=== PATIENT | female | born 1950 | race Caucasian/White ===

== ENCOUNTER 2023-10-28 09:42 | Outpatient (CLI) | payer BC, MEDICARE ==
[2023-10-28 10:17] LABS: BASOPHILS % (AUTO) 0.5 % (0-1); EOSINOPHILS # (AUTO) 0.3 X10'3 (0-0.9); EOSINOPHILS % (AUTO) 5.5 % (0-6); HEMATOCRIT 39.9 % (35.0-45.0); HEMOGLOBIN 13.3 g/dl (12.0-16.0); LYMPHOCYTES # (AUTO) 1.2 X10'3 (1.1-4.8); LYMPHOCYTES % (AUTO) 21.8 % (21-51); MEAN CORPUSCULAR HEMOGLOBIN 29.6 PG (27.0-31.0); MEAN CORPUSCULAR HGB CONC 33.3 g/dL (33.0-36.5); MEAN CORPUSCULAR VOLUME 88.8 FL (78-98); MEAN PLATELET VOLUME 8.2 FL (7.4-10.4); MONOCYTES # (AUTO) 0.6 X10'3 (0-0.9); NEUTROPHILS # (AUTO) 3.3 X10'3 (1.8-7.7); NEUTROPHILS % (AUTO) 61.2 % (42-75); PLATELET COUNT 200 X10'3 (140-440); RED BLOOD COUNT 4.49 X10'6 (4.20-5.60); RED CELL DISTRIBUTION WIDTH 14.6 % (11.5-14.5); WHITE BLOOD COUNT 5.4 X10'3 (4.5-11.0)
[2023-10-28 10:31] LABS: APTT 29 SECONDS (22-32); PROTHROMBIN TIME 10.9 SECONDS (9.0-12.0)
[2023-10-28 10:45] LABS: ANION GAP 7 (8-16); BLOOD UREA NITROGEN 26 MG/DL (7-18); BUN/CREATININE RATIO 21.7 (10.0-20.0); CHLORIDE 109 MMOL/L (99-107); GLUCOSE 97 MG/DL (70-104); POTASSIUM 3.9 MMOL/L (3.5-5.1); SODIUM 144 MMOL/L (135-145); TOTAL CARBON DIOXIDE 27.9 MMOL/L (24-32); eGFR 44 ML/MIN
[2023-10-28 10:46] LABS: ALANINE AMINOTRANSFERASE 24 U/L (12-78); ALBUMIN 3.5 G/DL (3.4-5.0); ALBUMIN/GLOBULIN RATIO 0.9 (1.1-1.5); ALKALINE PHOSPHATASE 93 IU/L (46-116); ASPARTATE AMINO TRANSFERASE 18 U/L (10-37); BILIRUBIN,TOTAL 0.5 MG/DL (0.1-1.0); TOTAL PROTEIN 7.3 G/DL (6.4-8.2)
[2023-10-28 10:48] LABS: PRO BRAIN NATRIURETIC PEPTIDE 249 PG/ML (0-125)
[2023-10-28] MEDS ORDERED: IODIXANOL 320 MG/ML INFUS..BTL 100ML IV ONE (11:18)
== END 2023-10-28 23:59 | disposition home or self-care (01) ==
LOC: RAD 09:42
PROVIDERS: ATTEND Internal Medicine Cardiovascular Disease
DX: K80.20 Calculus of gallbladder without cholecystitis without obstruction (principal); I35.0 Nonrheumatic aortic (valve) stenosis; R06.02 Shortness of breath; R91.8 Other nonspecific abnormal finding of lung field; I65.23 Occlusion and stenosis of bilateral carotid arteries; I70.0 Atherosclerosis of aorta; J98.4 Other disorders of lung; K57.30 Diverticulosis of large intestine without perforation or abscess without bleeding; N32.89 Other specified disorders of bladder; M47.819 Spondylosis without myelopathy or radiculopathy, site unspecified; M43.16 Spondylolisthesis, lumbar region; Z90.710 Acquired absence of both cervix and uterus
CPT/HCPCS: 36415; 71046; 71275; 74174; 75572; 80053; 83880; 85025; 85610; 85730; 93880; 94010; 94727; 94729; J3490; Q9967

== ENCOUNTER 2023-12-03 05:57 | Inpatient (IN) | payer BC, MEDICARE ==
[2023-11-26 11:10] LABS: BILIRUBIN,URINE NEGATIVE (Neg); CLARITY,URINE SLIGHTLY CLOUDY (Clear); COLOR,URINE YELLOW (Yellow); GLUCOSE, URINE NEGATIVE (Neg); KETONES,URINE NEGATIVE (Neg); LEUKOCYTE ESTERASE ,URINE SMALL (Neg); NITRITES, URINE NEGATIVE (Neg); OCCULT BLOOD,URINE NEGATIVE (Neg); PROTEIN,URINE NEGATIVE (Neg); UROBILINOGEN,URINE 0.2 E.U/dL (0.2-1.0)
[2023-11-26 11:14] LABS: UA COLLECTION TYPE CLN CATCH MIDSTREAM
[2023-11-26 11:19] LABS: BASOPHILS % (AUTO) 0.5 % (0-1); EOSINOPHILS # (AUTO) 0.4 X10'3 (0-0.9); EOSINOPHILS % (AUTO) 7.1 % (0-6); LYMPHOCYTES # (AUTO) 1.3 X10'3 (1.1-4.8); LYMPHOCYTES % (AUTO) 20.8 % (21-51); MEAN CORPUSCULAR HGB CONC 32.8 g/dL (33.0-36.5); MEAN CORPUSCULAR VOLUME 88.4 FL (78-98); MEAN PLATELET VOLUME 8.1 FL (7.4-10.4); MONOCYTES # (AUTO) 0.8 X10'3 (0-0.9); MONOCYTES % (AUTO) 11.9 % (2-12); NEUTROPHILS # (AUTO) 3.8 X10'3 (1.8-7.7); NEUTROPHILS % (AUTO) 59.7 % (42-75); PRE OP HEMOGLOBIN 13.5 g/dL (12.0-16.0); PRE OP PLATELET COUNT 216 X10'3 (140-440); PRE OP WHITE BLOOD COUNT 6.3 10'3 (4.8-10.8); RED BLOOD COUNT 4.63 X10'6 (4.20-5.60)
[2023-11-26 11:20] LABS: SQUAMOUS EPITHELIAL CELL,UR MANY /LPF (FEW)
[2023-11-26 11:22] LABS: RBC,URINE NONE SEEN /HPF (0-2)
[2023-11-26 11:23] LABS: BACTERIA,URINE FEW /HPF (Neg)
[2023-11-26 11:37] LABS: PRE OP PROTIME 10.9 SECONDS (9.0-12.0)
[2023-11-26 11:48] LABS: ALBUMIN 3.3 G/DL (3.4-5.0); ALBUMIN/GLOBULIN RATIO 0.7 (1.1-1.5); ALKALINE PHOSPHATASE 93 IU/L (46-116); BLOOD UREA NITROGEN 25 MG/DL (7-18); BUN/CREATININE RATIO 19.4 (10.0-20.0); CALCIUM 9.1 MG/DL (8.5-10.1); CHLORIDE 107 MMOL/L (99-107); CREATININE 1.29 MG/DL (0.40-0.90); PRE OP ALT 22 U/L (30-65); PRE OP ANION GAP 11 (8-16); PRE OP AST 16 U/L (10-37); PRE OP BILIRUB, TOTAL 0.5 MG/DL (0.0-1.0); PRE OP GLUCOSE 91 MG/DL (70-104); PRE OP POTASSIUM 3.6 MMOL/L (3.4-5.1); PRE OP SODIUM 144 MMOL/L (135-145); PRO BRAIN NATRIURETIC PEPTIDE 223 PG/ML (0-125); TOTAL CARBON DIOXIDE 26.5 MMOL/L (24-32); TOTAL PROTEIN 7.8 G/DL (6.4-8.2); eGFR 41 ML/MIN
[2023-11-26 12:26] LABS: THYROID STIMULATING HORMONE 2.31 ulU/ml (0.34-4.50)
[~2023-12-03] VITALS: Ht 160 cm; Wt 92.0 kg
[2023-12-03] VITALS (27 sets, daily range): BP systolic 88–156; BP diastolic 49–92; PULSE 63–84; RESP 8–20; TEMP 97.6–98.2; O2SAT 92–99
[~2023-12-03 05:57] MED LIST: ASCO500C17 PO; ATOR40TA71 PO; CALC500T63 PO; ERGO400C PO; LEVO112T5 PO; OMEG1CAP46 PO; OMEP20CA16 PO; PREVCR VG; UBID200C37 PO; ZINC220T3 PO; [UNRECOGNIZED DRUG - CODE] PO; ondansetron/PF 4mg/2ml inj IV PRN
[2023-12-03] MEDS: cefazolin 2gm/D5W 100mL 100 ML IV ONE (06:26)
[2023-12-03] MEDS: vancomycin 1,500 MG in NS 300ml IV soln IV ONE (06:43)
[2023-12-03] MEDS: famotidine 20mg tablet PO ONE (06:43)
[2023-12-03] MEDS: ringers solution, lacted 1,000 ML IV SCH ×2 (06:43→10:30)
[2023-12-03] MEDS: aspirin 325mg tablet PO ONE (06:43)
[2023-12-03] MEDS ORDERED: ondansetron/PF 4mg/2ml inj IV PRN ×2 (07:00→10:05)
[2023-12-03] MEDS ORDERED: proCHLORperazine 10 MG/2 ml inj IV PRN ×2 (07:00→10:05)
[2023-12-03] MEDS ORDERED: morphine 2 MG/ML inj. syringe IV PRN (07:00)
[2023-12-03] MEDS ORDERED: morphine 4 MG/ML inj SYRINge IV PRN (07:00)
[2023-12-03] MEDS ORDERED: meperidine/PF 25mg/ml syringe IV PRN ×3 (07:00)
[2023-12-03] MEDS ORDERED: LIDOcaine 1% (10mg/ml) 2ml vial ONE (08:27)
[2023-12-03] MEDS ORDERED: heparin 1,000 UNITS/NS 500ml 1,500 ML ONE (08:47)
[2023-12-03] MEDS ORDERED: iohexol 350MG/ML 100ml bottle IV ONE (08:49)
[2023-12-03] MEDS ORDERED: sevoflurane 250ml liquid IH ONE (08:52)
[2023-12-03] MEDS ORDERED: midazolam 1 mg/ML 2ml injection ONE (08:55)
[2023-12-03] MEDS ORDERED: fentaNYL/PF 50MCG/1 ML 2ML syringe ONE (08:55)
[2023-12-03] MEDS ORDERED: propofol inj 20 ML IV ONE (08:58)
[2023-12-03] MEDS: protamine sulfate 10mg/ml inj. ONE (09:05)
[2023-12-03] MEDS ORDERED: heparin 1,000unit/ml 10ml vial 10 ML ONE (09:42)
[2023-12-03] MEDS ORDERED: diphenhydrAMINE 25mg capsule PO PRN (10:05)
[2023-12-03] MEDS ORDERED: labetalol 20mg/4ml (5mg/ml) syringe IV PRN (10:05)
[2023-12-03] MEDS ORDERED: hydrALAZINE 20mg/ml inj. IV PRN (10:05)
[2023-12-03] MEDS ORDERED: potassium Cl 40MEQ/1/2NS 520ml 520 ML IV PRN (10:05)
[2023-12-03] MEDS ORDERED: magnesium 4gm in 100ml NS 100 ML IV PRN (10:05)
[2023-12-03] MEDS ORDERED: ALPRAZolam 0.25mg tablet PO PRN (10:05)
[2023-12-03] MEDS ORDERED: potassium CL 10mEq/100ml bag 100 ML IV PRN (10:05)
[2023-12-03] MEDS ORDERED: potassium Cl 20 mEq SR tablet PO PRN (10:05)
[2023-12-03] MEDS ORDERED: docusate sod 100mg capsule PO PRN (10:05)
[2023-12-03] MEDS ORDERED: HYDROcodone/acetaminophen 5mg/325mg tablet PO PRN (10:05)
[2023-12-03] MEDS ORDERED: potassium Cl 40MEQ/270ML bag 250 ML IV PRN (10:05)
[2023-12-03] MEDS ORDERED: magnesium 2GM in 50ml NS 50 ML IV PRN (10:05)
[2023-12-03] MEDS ORDERED: pantoprazole 40mg Tablet.DR PO PRN (10:05)
[2023-12-03] MEDS ORDERED: potassium Cl 20mEq/100mL bag 100 ML IV PRN (10:05)
[2023-12-03] MEDS: nitroPRUSSIDE (NIPRIDE) (200MCG/ML) 100ML Drip IV SCH (10:29)
[2023-12-03] MEDS: phenylephrine inj 50 MG in normal saline 250ml IV solN IV SCH (10:30)
[2023-12-03] MEDS: normal saline 1000ml 1,000 ML IV SCH (14:30)
[2023-12-03] MEDS: ceFAZolin 1GM/D5W- ADD-VANTAGE 50 ML IV SCH (16:00)
[2023-12-03] MEDS: sod chloride 0.9% 10ml flush syringe IV SCH (16:00)
[2023-12-03] MEDS: acetaminophen 325mg tablet PO PRN (16:18)
[2023-12-03] MEDS: estrogens, conjug. vaginal cream 45gm tube VG SCH (20:00)
[2023-12-03] MEDS: vancomycin/NS 1 GM ADD-VANTAGE 250 ML IV SCH (20:10)
[2023-12-04 02:00] VITALS: BP 143/73; PULSE 83; RESP 11; TEMP 97.2; O2SAT 96
[2023-12-04 06:00] VITALS: BP 136/60; PULSE 98; RESP 14; TEMP 98.4; O2SAT 93
[2023-12-04 06:30] VITALS: O2SAT 92
[2023-12-04 07:42] LABS: BASOPHILS % (AUTO) 0.4 % (0-1); EOSINOPHILS # (AUTO) 0.2 X10'3 (0-0.9); EOSINOPHILS % (AUTO) 2.9 % (0-6); HEMATOCRIT 36.4 % (35.0-45.0); HEMOGLOBIN 12.2 g/dl (12.0-16.0); LYMPHOCYTES # (AUTO) 0.8 X10'3 (1.1-4.8); LYMPHOCYTES % (AUTO) 9.2 % (21-51); MEAN CORPUSCULAR HEMOGLOBIN 29.5 PG (27.0-31.0); MEAN CORPUSCULAR HGB CONC 33.5 g/dL (33.0-36.5); MEAN PLATELET VOLUME 8.4 FL (7.4-10.4); MONOCYTES # (AUTO) 0.9 X10'3 (0-0.9); MONOCYTES % (AUTO) 10.8 % (2-12); NEUTROPHILS # (AUTO) 6.4 X10'3 (1.8-7.7); NEUTROPHILS % (AUTO) 76.7 % (42-75); PLATELET COUNT 157 X10'3 (140-440); RED BLOOD COUNT 4.13 X10'6 (4.20-5.60); RED CELL DISTRIBUTION WIDTH 14.3 % (11.5-14.5); WHITE BLOOD COUNT 8.4 X10'3 (4.5-11.0)
[2023-12-04 07:53] LABS: ALANINE AMINOTRANSFERASE 17 U/L (12-78); PRO BRAIN NATRIURETIC PEPTIDE 415 PG/ML (0-125)
[2023-12-04] MEDS ORDERED: DIPHENHYDRAMINE PO SCH (08:00)
[2023-12-04] MEDS ORDERED: UBIDECARENONE PO SCH (08:00)
[2023-12-04] MEDS ORDERED: ACETAMINOPHEN PO SCH (08:00)
[2023-12-04 08:02] LABS: ALBUMIN/GLOBULIN RATIO 0.7 (1.1-1.5); ALKALINE PHOSPHATASE 85 IU/L (46-116); ANION GAP 11 (8-16); ASPARTATE AMINO TRANSFERASE 20 U/L (10-37); BILIRUBIN,TOTAL 0.7 MG/DL (0.1-1.0); BLOOD UREA NITROGEN 19 MG/DL (7-18); BUN/CREATININE RATIO 14.6 (10.0-20.0); CALCIUM 8.8 MG/DL (8.5-10.1); CHLORIDE 106 MMOL/L (99-107); GLUCOSE 120 MG/DL (70-104); MAGNESIUM 1.9 MG/DL (1.5-2.4); POTASSIUM 3.9 MMOL/L (3.5-5.1); SODIUM 141 MMOL/L (135-145); TOTAL CARBON DIOXIDE 24.4 MMOL/L (24-32); TOTAL PROTEIN 7.2 G/DL (6.4-8.2); eCRCL 33 ML/MIN; eGFR 40 ML/MIN
[2023-12-04] MEDS: ascorbic acid 500mg tablet PO SCH (08:32)
[2023-12-04] MEDS: aspirin 81mg tab.chew PO SCH (08:33)
[2023-12-04] MEDS: atorvastatin 20mg tablet PO SCH (08:33)
[2023-12-04] MEDS: pantoprazole 40mg Tablet.DR PO SCH (08:33)
[2023-12-04] MEDS: cholecalciferol (vitamin D3) 400 unit (10mcg) tablet PO SCH (08:34)
[2023-12-04] MEDS: OMEGA-3/DHA/EPA/FISH OIL 1 EACH CAPSULE.DR PO SCH (08:34)
[2023-12-04] MEDS: zinc sulfate 220mg capsule PO SCH (08:34)
[2023-12-04] MEDS: calcium carbonate 500mg tablet PO SCH (08:34)
[2023-12-04] MEDS: levoTHYROXINE 112mcg tablet PO SCH (09:45)
[2023-12-04 11:00] VITALS: BP 136/68; PULSE 94; RESP 18; TEMP 97.6; O2SAT 94
[2023-12-04] MEDS ORDERED: ASPI81TA53 PO (12:51)
== END 2023-12-04 16:00 | disposition home or self-care (01) | DRG 267 ==
LOC: PAS IN 05:57 → UNDOADMIN 05:57 → PAS IN 10:04 → PCU 3S 16:50
PROVIDERS: ADMIT Internal Medicine Cardiovascular Disease; ATTEND Internal Medicine Cardiovascular Disease
PROC: B41D1ZZ Fluoroscopy of Aorta and Bilateral Lower Extremity Arteries using Low Osmolar Contrast (ICD-10-PCS; 2023-12-03)
PROC: 03HY32Z Insertion of Monitoring Device into Upper Artery, Percutaneous Approach (ICD-10-PCS; 2023-12-03)
PROC: 02RF38Z Replacement of Aortic Valve with Zooplastic Tissue, Percutaneous Approach (ICD-10-PCS; principal; 2023-12-03 08:52)
DX: I35.0 Nonrheumatic aortic (valve) stenosis (principal); Z00.6 Encounter for examination for normal comparison and control in clinical research program; E78.5 Hyperlipidemia, unspecified; I49.3 Ventricular premature depolarization; N18.9 Chronic kidney disease, unspecified; Z91.040 Latex allergy status
CPT/HCPCS: 33361; 36415; 71045; 71046; 76937; 80053; 81001; 83735; 83880; 84443; 85025; 85347; 85610; 85730; 86885; 86900; 86901; 86920; 87081; 87088; 93005; 93308; A4314; A4618; A6258; A6449; C1756; C1760; C1769; C1894; G0378; J0690; J1644; J2250; J2370; J2704; J2720; J3010; J3370; J3490; J7030; J7040; J7050; J7120; Q9967